=== PATIENT | female | born 1975 | race Caucasian/White ===

== ENCOUNTER 2021-06-30 06:10 | Emergency (ER) | payer OTHER ==
[~2021-06-30] VITALS: Ht 162.6 cm; Wt 85.0 kg
[~2021-06-30 06:10] MED LIST: AZIT-84 PO; FLUC150T55 PO
[2021-06-30] MEDS ORDERED: LOSA50TA37 PO (06:20)
[2021-06-30] MEDS ORDERED: LOSARTAN POTASSIUM 50 MG TABLET PO ONE (06:45)
[2021-06-30] MEDS ORDERED: KETOROLAC TROMETHAMINE 60 MG/2 ML VIAL IM ONE (06:45)
[2021-06-30] MEDS ORDERED: CYCLOBENZAPRINE HCL 10 MG TABLET PO ONE (06:45)
[2021-06-30 07:08] VITALS: BP 162/97
== END 2021-06-30 07:21 | disposition home or self-care (01) ==
LOC: EMS 06:11
DX: M54.50 Low back pain, unspecified (principal); I10 Essential (primary) hypertension
CPT/HCPCS: 81002; 81025; 96372; 99283; J1885